=== PATIENT | male | born 2005 | race Caucasian/White ===

== ENCOUNTER 2023-04-04 00:11 | Emergency (ER) | payer SELFPAY ==
[2023-04-04] MEDS ORDERED: Acetaminophen/HYDROcodone 325-5 MG Tab PO ONE (00:26)
[2023-04-04] MEDS ORDERED: Ondansetron 4 MG Tab.DIS PO ONE (00:26)
== END 2023-04-04 03:03 | disposition left against medical advice (07) ==
LOC: MW.ED 00:11
DX: S61.300A Unspecified open wound of right index finger with damage to nail, initial encounter (principal); S61.302A Unspecified open wound of right middle finger with damage to nail, initial encounter; S60.011A Contusion of right thumb without damage to nail, initial encounter; S60.141A Contusion of right ring finger with damage to nail, initial encounter; S61.401A Unspecified open wound of right hand, initial encounter; W39.XXXA Discharge of firework, initial encounter
CPT/HCPCS: 73130; 99283; A9270